=== PATIENT | male | born 1970 | race Hispanic/Latino ===

== ENCOUNTER 2017-02-10 07:45 | Emergency (ER) | payer MEDICAID ==
[2017-02-10 07:52] VITALS: BMI 30.7
[2017-02-10] MEDS ORDERED: Lidocaine 5% Patch TD STA (08:15)
--- NOTE | 2017-02-10 08:17 | ED PDOC ---
Arrival/HPI - General Chief Complaint: Back Pain Time Seen by Provider: 02/10/17 07:59 Historian: Patient - History of Present Illness Narrative History of Present Illness (Text): 02/10/17 08:12 Patient is a 46 year old male who denies significant past medical history, presenting to the emergency department with sudden onset of sharp lower back pain after lifting heavy concrete bag in his yard three days ago. Patient states the pain is worse when bending down. He reports Motrin provides temporary relief but has not resolved the pain. He states he last took Motrin at 03:00 this morning. Patient reports he is a smoker. No other complaints at this time. Pt states his pain is a "6" on a 1-10 scale. (I did an inquiry of the [place] Prescription Monitoring Program--as required by law--and pt does not have a hx of filling prescriptions for opioids.) PMD: Dr. Caro Time/Duration: < week Symptom Onset: Sudden Symptom Course: Unchanged Modifying Factors (Text): Motrin provides temporary relief Associated Symptoms (Text): None Past Medical History - Provider Review Nursing Documentation Reviewed: Yes - Past History Past History: No Previous - Infectious Disease Hx of Infectious Diseases: None - Tetanus Immunization Tetanus Immunization: Unknown - Cardiac Hx Hyperlipemia: Yes - Musculoskeletal/Rheumatological Hx Falls: No - Psychiatric Hx Depression: No Hx Emotional Abuse: No Hx Physical Abuse: No Hx Substance Use: Yes (COCAINE) - Surgical History Hx Appendectomy: Yes (at 19 years old) - Anesthesia Hx Anesthesia: Yes Hx Anesthesia Reactions: No Hx Malignant Hyperthermia: No - Suicidal Assessment Feels Threatened In Home Enviroment: No Family/Social History - Physician Review Nursing Documentation Reviewed: Yes Family/Social History: CAD/[place] Smoking Status: Current Some Days Smoker Hx Alcohol Use: Yes (heavy drinking 1x/week) Hx Substance Use: Yes (COCAINE) Substance used: cocaine Hx Substance Use Treatment: No Allergies/Home Meds Allergies/Adverse Reactions: Allergies No Known Allergies Allergy (Verified 02/10/17 07:52) Review of Systems - Review of Systems Cardiovascular: absent: Chest Pain Gastrointestinal: absent: Stool Changes Genitourinary Male: absent: Dysuria, Urinary Output Changes Musculoskeletal: Back Pain Neurological: absent: Dizziness Physical Exam Vital Signs Reviewed: Yes Vital Signs Temp Pulse Resp BP Pulse Ox 02/10/17 10:27 97.9 F 60 18 147/84 99 02/10/17 07:45 97.6 F 70 16 131/87 98 Temperature: Afebrile Blood Pressure: Normal Pulse: Regular Respiratory Rate: Normal Appearance: Positive for: Well-Appearing, Non-Toxic, Uncomfortable Pain Distress: Moderate Mental Status: Positive for: Alert and Oriented X 3 - Systems Exam Head: Present: Atraumatic, Normocephalic Pupils: Present: PERRL Conjunctiva: Present: Normal Mouth: Present: Moist Mucous Membranes Pharnyx: Present: Normal Nose (External): Present: Atraumatic Neck: Present: Normal Range of Motion Back: Present: Paraspinal Tenderness (Paralumbar), Pain with Leg Raise (Pain with left straight leg raise at 60 degrees) Neurological: Present: GCS=15, CN II-XII Intact, Speech Normal Skin: Present: Warm, Dry, Normal Color. No: Rashes Psychiatric: Present: Alert, Oriented x 3, Normal Insight, Normal Concentration Medical Decision Making ED Course and Treatment: Impression: Low back pain Differential Diagnosis include but are not limited to: Lumbar strain Plan: -- XR lumbar spine -- Lidoderm, Toradol, Tylenol, Valium -- Reassess and disposition Progress Notes: I did an inquiry of patient's records through the [place] Prescription Monitoring Program and patient does not appear to be suspicious for abuse 02/10/17 10:19 Pt feels better. Will d/c home. Patient in agreement with plan to discharged home. Patient is stable for discharge. Patient was instructed to follow up with physician/clinic in 1-2 days or return if symptoms worsen or new concerning symptoms arise. - RAD Interpretation Narrative RAD Interpretations (Text): PROCEDURE: Radiographs of the Lumbar Spine. Edi Specialist : Elsie Hernandez MD FINDINGS: BONES: There is straightening of the lumbar spine with loss of normal lumbar lordosis. Vertebral height is normal. There is no acute fracture. Bone mineralization is normal. DISC SPACES: There is mild multilevel degenerative disc disease with anterior spurring, reduced disc heights and multilevel facet arthropathy, worse at L5-S1. OTHER FINDINGS: There are no pathologic soft tissue calcifications. Both sacroiliac joints are normal. There are small phleboliths in the pelvis. IMPRESSION: No acute fracture, spondylolysis or spondylolisthesis. Mild multilevel degenerative disc disease worse at L5-S1. Radiology Orders: 02/10/17 08:15 LS SPINE AP/LAT [RAD] Stat Executive Vice President: Radiologist - Medication Orders Current Medication Orders: Discontinued Medications Acetaminophen (Tylenol 325mg Tab) 975 mg PO STAT STA Stop: 02/10/17 08:15 Last Admin: 02/10/17 08:39 Dose: 975 MG MAR Pain/Vitals Document 02/10/17 08:39 SS (Rec: 02/10/17 08:39 SS [id number]) Pain Reassessment Is This A Pain ReAssessment? No Sleep Is patient sleeping during reassessment? No Presence of Pain Presence of Pain Yes Pain Scale Used Pain Scale Used Numeric Location Left, Right or Bilateral Bilateral Upper or Lower Lower Pain Location Body Site Back Description Constant Intensity 6 Scale Used Numeric Diazepam (Valium) 5 mg PO ONCE ONE Stop: 02/10/17 08:15 Last Admin: 02/10/17 08:50 Dose: Not Given Non-Admin Reason: Patient Refused Ketorolac Tromethamine (Toradol) 60 mg IM STAT STA Stop: 02/10/17 08:15 Last Admin: 02/10/17 08:40 Dose: 60 MG IM Administration Charges Document 02/10/17 08:40 SS (Rec: 02/10/17 08:40 SS [id number]) Injection Site MAR Injection Site Right Deltoid Charges for Administration # of IM Administrations 1 Lidocaine (Lidoderm) 1 ea TD STAT STA Stop: 02/10/17 08:16 Last Admin: 02/10/17 08:40 Dose: 1 EA MAR Transdermal Patch Site Document 02/10/17 08:40 SS (Rec: 02/10/17 08:40 SS [id number]) Transdermal Patch Site Transdermal Patch Site Left Lower Back - Scribe Statement The provider has reviewed the documentation as recorded by the Pema Johnson Provider Scribe Attestation: All medical record entries made by the Vijayibabdi were at my direction and personally dictated by me. I have reviewed the chart and agree that the record accurately reflects my personal performance of the history, physical exam, medical decision making, and the department course for this patient. I have also personally directed, reviewed, and agree with the discharge instructions and disposition. Disposition/Present on Arrival - Present on Arrival Any Indicators Present on Arrival: Yes History of DVT/PE: No History of Uncontrolled Diabetes: No Urinary Catheter: No History of Decub. Ulcer: No History Surgical Site Infection Following: None - Disposition Have Diagnosis and Disposition been Completed?: Yes Diagnosis: Lumbar spine strain Disposition: HOME/ ROUTINE Disposition Time: 10:24 Patient Plan: Discharge Condition: IMPROVED Discharge Instructions (ExitCare): Acute Low Back Pain (ED) Print Language: JAPANESE Additional Instructions: Mr. Bush, thank you for letting us take care of you today. Return to the ER if your symptoms worsen, or if any problems. Take the medication listed below as prescribed. Call Dr. Nazario's office (he is a back pain specialist) at the phone number listed below to make a follow up appointment for this week. Prescriptions: Cyclobenzaprine [Cyclobenzaprine HCl] 1 tab PO TID PRN #15 tab PRN Reason: Muscle Spasm Lidocaine 5% [Lidoderm] 1 patch TD Q6 PRN #12 patch PRN Reason: Pain, Moderate (4-7) Naproxen [Naprosyn] 1 tab PO BID PRN #25 tab PRN Reason: Pain, Moderate (4-7) Referrals: Michelle Byrnes MD [Primary Care Provider] - Follow up with primary Dorian Nazario MD [Staff Provider] - Follow up with primary
--- NOTE | 2017-02-10 09:53 | RAD ---
PROCEDURE: Radiographs of the Lumbar Spine. HISTORY: c/o low back pain after lifted heavy object COMPARISON: No prior. FINDINGS: BONES: There is straightening of the lumbar spine with loss of normal lumbar lordosis. Vertebral height is normal. There is no acute fracture. Bone mineralization is normal. DISC SPACES: There is mild multilevel degenerative disc disease with anterior spurring, reduced disc heights and multilevel facet arthropathy, worse at L5-S1. OTHER FINDINGS: There are no pathologic soft tissue calcifications. Both sacroiliac joints are normal. There are small phleboliths in the pelvis. IMPRESSION: No acute fracture, spondylolysis or spondylolisthesis. Mild multilevel degenerative disc disease worse at L5-S1.
[2017-02-10 10:28] VITALS: BP 147/84; PULSE 60; RESP 18; TEMP 97.9; O2SAT 99
== END 2017-02-10 10:31 | disposition home or self-care (01) ==
LOC: ED 07:45
DX: S39.012A Strain of muscle, fascia and tendon of lower back, initial encounter (principal); X50.9XXA Other and unspecified overexertion or strenuous movements or postures, initial encounter; F17.210 Nicotine dependence, cigarettes, uncomplicated; E78.5 Hyperlipidemia, unspecified
CPT/HCPCS: 72100; 96372; 99283; J1885

== ENCOUNTER 2017-04-01 19:01 | Emergency (ER) | payer MEDICAID ==
[2017-04-01 19:12] VITALS: BP 135/59; PULSE 100; RESP 16; TEMP 98.6; O2SAT 98; BMI 31.5
--- NOTE | 2017-04-01 19:44 | ED PDOC ---
Arrival/HPI - General Chief Complaint: Abnormal Skin Integrity Time Seen by Provider: 04/01/17 19:44 Historian: Patient - History of Present Illness Narrative History of Present Illness (Text): 04/01/17 19:46 Patient complains of a painful mass of gradually increasing size of the L buttock proximal to the perineal area for the past several days which patient states "just opened up and bursted out with pus." Otherwise: (-) foreign body , (-) fever, (-) chills, (-) recent antibiotic use. PMD Nnamdi Past Medical History - Provider Review Nursing Documentation Reviewed: Yes - Past History Past History: No Previous - Infectious Disease Hx of Infectious Diseases: None - Tetanus Immunization Tetanus Immunization: Unknown - Cardiac Hx Hyperlipemia: Yes - Musculoskeletal/Rheumatological Hx Falls: No - Psychiatric Hx Depression: No Hx Emotional Abuse: No Hx Physical Abuse: No Hx Substance Use: Yes (COCAINE) - Surgical History Hx Appendectomy: Yes (at 19 years old) - Anesthesia Hx Anesthesia: Yes Hx Anesthesia Reactions: No Hx Malignant Hyperthermia: No - Suicidal Assessment Feels Threatened In Home Enviroment: No Family/Social History - Physician Review Nursing Documentation Reviewed: Yes Family/Social History: No Known Family HX Smoking Status: Current Some Days Smoker Hx Alcohol Use: Yes (heavy drinking 1x/week) Hx Substance Use: Yes (COCAINE) Substance used: cocaine Hx Substance Use Treatment: No Allergies/Home Meds Allergies/Adverse Reactions: Allergies No Known Allergies Allergy (Verified 04/01/17 19:58) Review of Systems - Review of Systems Constitutional: Normal. absent: Fatigue, Weight Change, Fevers Musculoskeletal: Normal. absent: Arthralgias, Back Pain, Neck Pain Skin: Normal. absent: Rash, Pruritis, Skin Lesions, Laceration, Abscess ( multiple abscesses in the past) Physical Exam - Physical Exam Narrative Physical Exam (Text): 04/01/17 19:48. GENERAL APPEARANCE: Patient is awake, alert, oriented x 3, in mild painful distress. Skin: warm and dry, +4 x 4 open draining erythematous, tender, slightly fluctuant abscess to the L lower buttock proximal to the perineal area with no surrounding cellulitis. Pulmonary: lungs clear, no rhonchi, no wheezing. Cardiac: regular rate and rhythm, no murmur, no gallop. Abdomen: soft, nontender, (+) non-tender L inguinal lymphadenopathy. Extremities: no deformity, full range of motion, no tenderness. Vital Signs Temp Pulse Resp BP Pulse Ox 04/01/17 19:09 98.6 F 100 H 16 135/59 L 98 Medical Decision Making ED Course and Treatment: 04/01/17 19:49 46 yo M presents with an abscess to the left buttock which opened up prior to arrival and as per patient drained of purulent material. On exam, there is no evidence of surrounding cellulitis. Patient given Keflex, Bactrim, naproxen by mouth and tetanus IM. Clean dressing was applied to the wound. Patient advised to clean the wound daily. Prescription for antibiotic provided to the patient and advised to follow up with his PMD for surgical referral without fail. Based on history, exam and diagnostic results plan will be for patient follow- up with PMD or surgical referral provided. Prescription for Keflex, Bactrim and naproxen provided. Patient states he fully agrees with and understands discharge instructions. States that he agrees with the plan and disposition. Verbalized and repeated discharge instructions and plan. I have given the patient opportunity to ask any additional questions. Follow up with primary care physician or surgical referral provided in 1-2 days for reevaluation and follow-up without fail. Advised to take medication as prescribed. Return to the emergency room at any time for any new or worsening symptoms. - Medication Orders Current Medication Orders: Discontinued Medications Cephalexin Monohydrate (Keflex) 500 mg PO STAT STA PRN Reason: Protocol Stop: 04/01/17 20:04 Last Admin: 04/01/17 20:32 Dose: 500 mg Naproxen (Anaprox Ds) 550 mg PO ONCE STA Stop: 04/01/17 20:04 Last Admin: 04/01/17 20:31 Dose: 550 mg Tetanus/Reduced Diphtheria/Acell Pertussis (Boostrix Vaccine Inj) 0.5 ml IM .ONCE ONE Stop: 04/01/17 20:04 Last Admin: 04/01/17 20:31 Dose: 0.5 ml Trimethoprim/Sulfamethoxazole (Bactrim Ds Tab) 2 tab PO STAT STA PRN Reason: Protocol Stop: 04/01/17 20:04 Last Admin: 04/01/17 20:31 Dose: 2 tab - PA / DIRECTOR OF STRATEGIC PARTNERSHIPS / Resident Statement /DO has reviewed & agrees with the documentation as recorded. Disposition/Present on Arrival - Present on Arrival Any Indicators Present on Arrival: No History of DVT/PE: No History of Uncontrolled Diabetes: No Urinary Catheter: No History of Decub. Ulcer: No History Surgical Site Infection Following: None - Disposition Have Diagnosis and Disposition been Completed?: Yes Diagnosis: Abscess Disposition: HOME/ ROUTINE Disposition Time: 19:52 Patient Plan: Discharge Condition: STABLE Discharge Instructions (ExitCare): Acute Wound Care (ED), Abscess (ED) Print Language: FRISIAN Additional Instructions: Thank you for letting us take care of you today. You were treated for abscess. The emergency medical care you received today was directed at your acute symptoms. If you were prescribed any medication, please fill it and take as directed. It may take several days for your symptoms to resolve. Return to the Emergency Department if your symptoms worsen, do not improve, or if you have any other problems. Please contact your doctor in 2 days for re-evaluation and follow up / or call one of the physicians/clinics you have been referred to that are listed on the Patient Visit Information form that is included in your discharge packet. Bring any paperwork you were given at discharge with you along with any medications you are taking to your follow up visit. Our treatment cannot replace ongoing medical care by a primary care provider (PCP) outside of the emergency department. Thank you for allowing the [facility] team to be part of your care today. Prescriptions: Cephalexin [Keflex] 500 mg PO Q6 #28 capsule Naproxen [Naprosyn Tab] 500 mg PO Q12 #20 tab Sulfamethoxazole/Trimethoprim [Bactrim DS 800 mg-160 mg] 2 tab PO BID #28 tab Referrals: Jorge Lang MD [Staff Provider] - Follow up with primary Forms: WORK NOTE
[2017-04-01] MEDS ORDERED: Tmp-Smz 800 mg-160 mg DS Tab PO STA (20:03)
[2017-04-01] MEDS ORDERED: Naproxen 550 mg Tab PO STA (20:03)
[2017-04-01] MEDS ORDERED: TDAP Vaccine 0.5 mL Syr IM ONE (20:03)
== END 2017-04-01 20:51 | disposition home or self-care (01) ==
LOC: ED 19:01
DX: L02.31 Cutaneous abscess of buttock (principal); Z23 Encounter for immunization

== ENCOUNTER 2018-03-29 16:18 | Emergency (ER) | payer MEDICAID ==
[2018-03-29 16:19] VITALS: BMI 31.5
[2018-03-29] MEDS ORDERED: TDAP Vaccine 0.5 mL Syr IM ONE (16:49)
--- NOTE | 2018-03-29 16:53 | ED PDOC ---
Arrival/HPI - General Chief Complaint: Dizziness/Lightheaded Time Seen by Provider: 03/29/18 16:23 - History of Present Illness Narrative History of Present Illness (Text): 03/29/18 16:48 Pt is a 47 yo M with PMH of alcohol and substance abuse presents to ED with complaint of dizziness s/p fall. Patient states that he drank a pint of vodka, a pint of whiskey, and 6 pack of beer last night. As he was leaving his friends house, he remembers falling down the steps, but does not remember any events after the fall. Patient states that he woke up a few hours before arrival and states that he feels dizzy, has blurred vision, and has pain on the top of his head. Patient states he typically drinks a 12 pack of beer twice a week and only occasionally drinks liquor. Patient also admits to weekly cocaine use and 30 pack year history of smoking. Patient denies CP, SOB, n/v/d, abdominal pain, fever, chills, or HOFF. PMD: Caro (Le,Christophe) Past Medical History - Provider Review Nursing Documentation Reviewed: Yes - Past History Past History: No Previous - Infectious Disease Hx of Infectious Diseases: None - Tetanus Immunization Tetanus Immunization: Unknown - Cardiac Hx Cardiac Disorders: No - Pulmonary Hx Respiratory Disorders: No - Neurological Hx Neurological Disorder: No - HEENT Hx HEENT Disorder: No - Renal Hx Renal Disorder: No - Endocrine/Metabolic Hx Endocrine Disorders: No - Hematological/Oncological Hx Blood Disorders: No - Integumentary Hx Dermatological Disorder: No - Musculoskeletal/Rheumatological Hx Musculoskeletal Disorders: Yes Hx Fractures: Yes - Gastrointestinal Hx Gastrointestinal Disorders: No - Genitourinary/Gynecological Hx Genitourinary Disorders: No - Psychiatric Hx Psychophysiologic Disorder: No Hx Substance Use: Yes (COCAINE) - Surgical History Hx Appendectomy: Yes (at 19 years old) Hx Orthopedic Surgery: Yes - Anesthesia Hx Anesthesia: Yes Hx Anesthesia Reactions: No Hx Malignant Hyperthermia: No - Suicidal Assessment Feels Threatened In Home Enviroment: No Family/Social History Family/Social History: No Known Family HX Smoking Status: Current Some Days Smoker Hx Alcohol Use: Yes (heavy drinking 1x/week) Hx Substance Use: Yes (COCAINE) Substance used: cocaine Hx Substance Use Treatment: No Allergies/Home Meds Allergies/Adverse Reactions: Allergies No Known Allergies Allergy (Verified 03/29/18 16:22) Home Medications: Home Meds Medication Instructions Recorded Confirmed No Known Home Med 03/29/18 03/29/18 Review of Systems - Physician Review All systems were reviewed & negative as marked: Yes (12 point ROS reviewed and is negative other than what is stated in HPI.) Physical Exam Vital Signs Reviewed: Yes Temperature: Afebrile Blood Pressure: Normal Pulse: Regular Respiratory Rate: Normal Appearance: Positive for: Non-Toxic Pain Distress: Mild Mental Status: Positive for: Alert and Oriented X 3 - Systems Exam Head: Present: Tenderness (left temporal region), Abrasion (left periorbital) Pupils: Present: PERRL Extroacular Muscles: Present: EOMI Conjunctiva: Present: Normal Ears: Present: Normal Mouth: Present: Moist Mucous Membranes Nose (Internal): Present: Normal Inspection Neck: Present: Normal Range of Motion Respiratory/Chest: Present: Clear to Auscultation. No: Wheezes, Rales, Rhonchi Cardiovascular: Present: Regular Rate and Rhythm. No: Murmurs, Rub, Gallop Abdomen: No: Tenderness, Distention, Rebound, Guarding Back: Present: Normal Inspection Upper Extremity: Present: Normal Inspection. No: Cyanosis, Edema Lower Extremity: Present: Other (abrasion on left knee). No: Edema Neurological: Present: GCS=15, CN II-XII Intact Skin: Present: Warm, Dry, Normal Color. No: Rashes Psychiatric: Present: Alert, Oriented x 3, Normal Insight, Normal Concentration Vital Signs Temp Pulse Resp BP Pulse Ox 03/29/18 18:32 98 F 64 19 140/80 99 03/29/18 18:14 64 18 148/86 98 03/29/18 16:23 98.6 F 66 16 158/92 H 100 Medical Decision Making ED Course and Treatment: 03/29/18 16:54 47 yo M with PMH of alcohol and substance abuse presents to ED with dizziness and blurred vision s/p fall 2/2 alcohol intoxication. Plan: - Labs - CT head - CT maxillofacial - EKG - UA - TDAP - Reassess and disposition 03/29/18 17:02 EKG showed NSR, rate 64. 03/29/18 18:[address] Impression: no actue intracranial hemorrhage, mild generalized volume loss, probable old fracture deformity right nasal bones. Maxillofacial CT Impression: soft tissue swelling without acute osseous abnormality. Disposition: Labs and imaging results were discussed with patient. As there are no acute findings, patient will be discharged to follow up with his PMD. Patient was counselled on the risks of alcohol and substance abuse and was advised cessation. (Raimundo Werner) 03/29/18 20:38 pt seenw ith residnet. s/p fall, after etoh consumptiopn. labs imaging neg. pt sleeping in nad. (Brendan Moncada) - Lab Interpretations Lab Results: 03/29/18 17:05 03/29/18 17:05 Lab Results 03/29/18 17:05: Sodium 143, Potassium 3.8, Chloride 105, Carbon Dioxide 27, Anion Gap 15, BUN 19, Creatinine 0.7 L, Est GFR ( Amer) > 60, Est GFR ( Non-Af Amer) > 60, Random Glucose 130 H, Calcium 9.3, Magnesium 1.7, Total Bilirubin 0.4, AST 29, ALT 17, Alkaline Phosphatase 68, Lactate Dehydrogenase 485, Total Creatine Kinase 127, Troponin I < 0.01, Total Protein 7.5, Albumin 4.1, Globulin 3.4, Albumin/Globulin Ratio 1.2 03/29/18 17:05: PT 12.1, INR 1.06, APTT 30.8 03/29/18 17:05: WBC 12.0 H, RBC 4.48, Hgb 13.7 L, Hct 40.9 L, MCV 91.3, MCH 30.6 , MCHC 33.5, RDW 13.3, Plt Count 287, MPV 9.0, Gran % 65.0, Lymph % (Auto) 16.8 L, Crockett % (Auto) 10.6 H, Eos % (Auto) 7.3 H, Baso % (Auto) 0.3, Gran # 7.79 H, Lymph # (Auto) 2.0, Crockett # (Auto) 1.3 H, Eos # (Auto) 0.9 H, Baso # (Auto) 0.03 - RAD Interpretation Radiology Orders: 03/29/18 16:49 HEAD W/O CONTRAST [CT] Stat MAXILLOFACIAL W/O CONTRAST [CT] Stat - Medication Orders Current Medication Orders: Discontinued Medications Tetanus/Reduced Diphtheria/Acell Pertussis (Boostrix Vaccine Inj) 0.5 ml IM .ONCE ONE Stop: 03/29/18 16:50 Last Admin: 03/29/18 17:02 Dose: 0.5 ml MAR Immunization Data Document 03/29/18 17:02 [place] (Rec: 03/29/18 17:02 [place] [id number]) Immunization Data Vaccine Information Sheet Given Yes Immunization Registry Document 03/29/18 17:02 [place] (Rec: 03/29/18 17:02 [place] [id number]) Immunization Registry Consent Date 03/29/18 Disposition/Present on Arrival - Present on Arrival Any Indicators Present on Arrival: No History of DVT/PE: No History of Uncontrolled Diabetes: No Urinary Catheter: No History of Decub. Ulcer: No History Surgical Site Infection Following: None - Disposition Have Diagnosis and Disposition been Completed?: Yes Disposition Time: 18:14 Patient Plan: Discharge - Disposition Diagnosis: Fall, Alcohol abuse Disposition: HOME/ ROUTINE Condition: STABLE Discharge Instructions (ExitCare): Preventing Falls, Alcohol Abuse and Alcoholism (DC) Additional Instructions: 1. Follow up with PMD within 1 week 2. Cease alcohol and illicit drug use 3. Return to ED if symptoms worsen Heber Christensen, thank you for letting us take care of you today. Your provider was Dr. Moncada. You were treated for dizziness secondary to fall. The emergency medical care you received today was directed at your acute symptoms. If you were prescribed any medication, please fill it and take as directed. It may take several days for your symptoms to resolve. Return to the Emergency Department if your symptoms worsen, do not improve, or if you have any other problems. Please contact your doctor or call one of the physicians/clinics you have been referred to that are listed on the Patient Visit Information form that is included in your discharge packet. Bring any paperwork you were given at discharge with you along with any medications you are taking to your follow up visit. Our treatment cannot replace ongoing medical care by a primary care provider (PCP) outside of the emergency department. Thank you for allowing the [facility] team to be part of your care today. Referrals: Michelle Byrnes MD [Primary Care Provider] - Follow up with primary Forms: [employer] ([place])
[2018-03-29 17:24] LABS: BASO # 0.03 K/mm3 (0.0-2.0); BASO % 0.3 % (0.0-3.0); EOS # 0.9 (0.0-0.7); EOS % 7.3 % (1.5-5.0); GRAN # 7.79 (1.4-6.5); HEMOGLOBIN 13.7 g/dL (14.0-18.0); LYMPH % 16.8 % (22.0-35.0); MEAN CELL VOLUME 91.3 fl (80.0-105.0); MEAN CORPUSCULAR HEMOGLOBIN 30.6 pg (25.0-35.0); MEAN CORPUSCULAR HGB CONC 33.5 g/dl (31.0-37.0); MONO # 1.3 (0.1-0.6); MONO % 10.6 % (1.0-6.0); RBC 4.48 10^6/uL (3.5-6.1); RED CELL DISTRIBUTION WIDTH 13.3 % (11.5-14.5)
[2018-03-29 17:33] LABS: INR 1.06 (0.93-1.08); PROTHROMBIN TIME 12.1 SECONDS (9.4-12.5)
[2018-03-29 17:34] LABS: ALB/GLOB RATIO 1.2 (1.1-1.8); ALBUMIN 4.1 g/dL (3.0-4.8); ALT/SGPT 17 U/L (7-56); AST/SGOT 29 U/L (17-59); BLOOD UREA NITROGEN 19 mg/dL (7-21); CALCIUM 9.3 mg/dL (8.4-10.5); GFR AFRICAN-AMERICAN > 60; GFR NON-AFRICAN AMERICAN > 60
[2018-03-29 17:35] LABS: PARTIAL THROMBOPLASTIN TIME 30.8 Seconds (25.1-36.5)
[2018-03-29 17:45] LABS: TROPONIN I < 0.01 ng/mL
--- NOTE | 2018-03-29 18:08 | CT ---
PROCEDURE: CT HEAD WITHOUT CONTRAST. HISTORY: Status post fall COMPARISON: Correlation made with concurrent CT scan maxillofacial skeleton. Comparison also made with prior CT scan of the brain dated 03/04/2014 TECHNIQUE: Axial computed tomography images were obtained through the head/brain without intravenous contrast. Radiation dose: Total exam DLP = 831.18 mGy-cm. This CT exam was performed using one or more of the following dose reduction techniques: Automated exposure control, adjustment of the mA and/or kV according to patient size, and/or use of iterative reconstruction technique. FINDINGS: HEMORRHAGE: No acute parenchymal, subarachnoid or extra-axial hemorrhage. BRAIN: No evidence of large acute infarct. . Mild generalized volume loss. VENTRICLES: No obstructive hydrocephalus. CALVARIUM: Unremarkable. Probable old fracture deformity right nasal bones. PARANASAL SINUSES: Mucoperiosteal inflammatory changes seen within the ethmoid air complex extending superiorly into the frontal sinus. Minimal mucosal thickening left maxillary antrum and the sphenoid sinus is well MASTOID AIR CELLS: Unremarkable as visualized. No inflammatory changes. OTHER FINDINGS: None. IMPRESSION: No acute intracranial hemorrhage. Mild generalized volume loss. Probable old fracture deformity right nasal bones.
--- NOTE | 2018-03-29 18:08 | CT ---
PROCEDURE: CT MAXILLOFACIAL BONES WITHOUT CONTRAST HISTORY: fall COMPARISON: 03/04/[address] TECHNIQUE: Contiguous axial CT images of the maxillofacial bones were obtained. Coronal and sagittal reformats were generated. Radiation dose: Total exam DLP = 850.48 mGy-cm. This CT exam was performed using one or more of the following dose reduction techniques: Automated exposure control, adjustment of the mA and/or kV according to patient size, and/or use of iterative reconstruction technique. FINDINGS: NASAL BONES: Unremarkable. ORBITS: Preseptal soft tissue swelling without globe or retro Conal abnormality. This appears be asymmetrical more prominent on the left side compared to the right. PARANASAL SINUSES/ MASTOIDS: Clear. MAXILLA: Unremarkable. MANDIBLE/ TEMPOROMANDIBULAR JOINTS: Unremarkable. SKULL BASE: Unremarkable. TEMPORAL BONES: Middle ears and mastoid grossly unremarkable. OTHER FINDINGS: Soft tissue swelling about the nose and face. No visulaized radiopaque/visualized foreign body. IMPRESSION: Soft tissue swelling without acute osseous abnormality. Additional benign and/or incidental findings described above.
[2018-03-29 18:14] VITALS: PULSE 64
[2018-03-29 18:34] VITALS: BP 140/80; RESP 19; TEMP 98; O2SAT 99
--- NOTE | 2018-03-30 10:43 | CARD ---
APPROVED REPORT EKG Measurement Heart [id number] <Conclusion> Normal sinus rhythm LVH by voltage
== END 2018-03-29 18:32 | disposition home or self-care (01) ==
LOC: ED 16:18
DX: F10.10 Alcohol abuse, uncomplicated (principal); W10.9XXA Fall (on) (from) unspecified stairs and steps, initial encounter; Y92.89 Other specified places as the place of occurrence of the external cause; F19.10 Other psychoactive substance abuse, uncomplicated; Z23 Encounter for immunization